=== PATIENT | male | born 1980 | race Caucasian/White ===

== ENCOUNTER 2018-06-02 15:22 | Emergency (ER) | payer BC ==
[~2018-06-02] VITALS: Ht 180.3 cm; Wt 81.6 kg
[2018-06-02] MEDS ORDERED: Norco 5mg/325mg tab ORAL ONE (15:45)
--- NOTE | 2018-06-02 16:31 | Emergency Room Report ---
History of Present Illness General Chief Complaint: Upper Extremity Injury Source: Patient Present Illness HPI 38-year-old male presents to the emergency department complaining of 10 out of 10 in severity localized pain to the right fifth knuckles status post punching a desk earlier today. Patient denies open wounds or bleeding he reports pain with attempts to make a fist or straightening his pinky up completely. Patient denies bruising he reports some mild swelling. Patient denies previous injury to the extremity. Denies numbness tingling or loss of sensation or gross motor movements of the extremities, incontinence of bowel or bladder. Denies CP, Palpitations, LOC, AMS, dizziness, Changes in Vision, weakness or a sudden severe headache. Allergies: Coded Allergies: No Known Allergies (Unverified , 06/02/18) Patient History Past Medical History: see triage record Past Surgical History: none Pertinent Family History: none Reviewed Nursing Documentation: PMH: Agreed; PSxH: Agreed Nursing Documentation-PMH Past Medical History: No Stated History Review of Systems All Other Systems: negative except mentioned in HPI Physical Exam Vital Signs Date Time Temp Pulse Resp B/P (MAP) Pulse Ox O2 Delivery O2 Flow Rate FiO2 06/02/18 15:29 97.9 81 18 160/99 97 Room Air 97.9 Sp02 EP Interpretation: reviewed, normal General Appearance: no apparent distress, alert, GCS 15, non-toxic Head: normocephalic, atraumatic Eyes: bilateral eye normal inspection, bilateral eye PERRL ENT: hearing grossly normal, normal voice Neck: full range of motion Respiratory: lungs clear, normal breath sounds, speaking full sentences Cardiovascular #1: regular rate, rhythm, normal capillary refill Musculoskeletal: back normal, gait/station normal, normal range of motion, tender - TP right 5th knuckle, swelling noted. Neurologic: alert, oriented x3, responsive, motor strength/tone normal, sensory intact, speech normal, grossly normal Psychiatric: judgement/insight normal Skin: normal color, no rash, warm/dry, well hydrated Medical Decision Making PA Attestation Dr. Ravi is my supervising Physician whom patient management has been discussed with. Diagnostic Impression: Primary Impression: Boxers fracture Qualified Codes: S62.339A - Displaced fracture of neck of unspecified metacarpal bone, initial encounter for closed fracture ER Course 38-year-old male presents to the emergency department complaining of 10 out of 10 in severity localized pain to the right fifth knuckles status post punching a desk earlier today. Patient denies open wounds or bleeding he reports pain with attempts to make a fist or straightening his pinky up completely. Patient denies bruising he reports some mild swelling. Patient denies previous injury to the extremity. Denies numbness tingling or loss of sensation or gross motor movements of the extremities, incontinence of bowel or bladder. Denies CP, Palpitations, LOC, AMS, dizziness, Changes in Vision, weakness or a sudden severe headache. Ddx considered but are not limited to Fracture, dislocation, contusion, Sprain/ Strain/Spasm just to name a few. Vital signs: are WNL, pt. is afebrile H&PE are most consistent with musculoskeletal injury will perform imaging to r/ o fractures/dislocations. ORDERS: - X-ray Right Hand 3 views - POSITIVE FOR 5th METACARPAL Fx, negative for dislocation, or significant soft tissue injury, per preliminary read in ED, and signed by EULALIA Chakraborty, my supervising physician has reviewed, and agrees with my interpretation. ED INTERVENTIONS: --Macomb PO - ulnar gutter Splint applied to the right hand by technical data analyst. Pt. remains neurovascularly intact. DISCHARGE: At this time pt. is stable for d/c to home. Will provide printed patient care instructions, and any necessary prescriptions. Care plan and follow up instructions have been discussed with the patient prior to discharge. Other X-Ray Diagnostic Results Other X-Ray Diagnostic Results : X-Ray ordered: Right Hand # of Views/Limited Vs Complete: 3 View Indication: Pain EP Interpretation: Yes EULALIA Xray: Interpretation reviewed, by supervising MD, and agrees with findings. Interpretation: no dislocation, no soft tissue swelling, other - POSITIVE FOR 5th METACARPAL Fx Impression: Other - abnormal Electronically Signed by: Altagracia Chakraborty PA-C Last Vital Signs Date Time Temp Pulse Resp B/P (MAP) Pulse Ox O2 Delivery O2 Flow Rate FiO2 06/02/18 15:52 97.9 06/02/18 15:29 81 18 160/99 97 Room Air Disposition: HOME, SELF-CARE Condition: Stable Scripts Ibuprofen* (MOTRIN*) 600 Mg Tablet 600 MG ORAL THREE TIMES A DAY, #30 TAB 0 Refills Prov: Altagracia Chakraborty 06/02/18 Hydrocodone Bit/Acetaminophen 5-325* (NORCO 5-325*) 1 Each Tablet 1 TAB ORAL Q6H, #15 TAB 0 Refills Prov: Altagracia Chakraborty 06/02/18 Referrals: NON PHYSICIAN (PCP) Patient Instructions: Boxer's Fracture Additional Instructions: Take medications as directed. Follow up with an COMPLEX CASE MANAGER in 3-5 days, even if your symptoms have resolved. If symptoms persist MRI may be required at the discretion of your PCP or Ortho Specialist. --Please review list of primary care clinics, if you do not already have a primary care provider who can give you an Orthopedic Referral. Return sooner to ED if new symptoms occur, or current symptoms become worse. Do not drink alcohol, drive, or operate heavy machinery while taking Macomb as this may cause drowsiness. - Please note that this Emergency Department Report was dictated using [employer] bariatric technology software, occasionally this can lead to erroneous entry secondary to interpretation by the dictation equipment. Altagracia Chakraborty Jun 02, 2018 16:31
--- NOTE | 2018-06-02 16:31 | Diagnostic Imaging Report ---
Indication: pain Right hand pain Findings: 3 views of the right hand were obtained. Acute nonintra-articular fracture of the distal part of the fifth metacarpal demonstrated with mild angulation. Soft tissue swelling noted. IMPRESSION: Acute fifth metacarpal fracture
[2018-06-02] MEDS ORDERED: NORCO 5-325 TA1 EACH ORAL (16:32)
[2018-06-02] MEDS ORDERED: IBUPROFEN600 MG ORAL (16:32)
[2018-06-02 17:02] VITALS: BP 150/89
[2018-06-02 17:04] VITALS: BP 150/89
== END 2018-06-02 17:06 | disposition home or self-care (01) ==
LOC: EMR 15:57
DX: S62.396A Other fracture of fifth metacarpal bone, right hand, initial encounter for closed fracture (principal); W22.8XXA Striking against or struck by other objects, initial encounter; Y92.9 Unspecified place or not applicable
CPT/HCPCS: 99284

== ENCOUNTER 2018-09-23 09:42 | Emergency (ER) | payer BC ==
[~2018-09-23] VITALS: Ht 175.3 cm; Wt 87.1 kg
[~2018-09-23 09:42] MED LIST: IBUPROFEN600 MG ORAL; NORCO 5-325 TA1 EACH ORAL
[2018-09-23 10:06] VITALS: BP 145/90
--- NOTE | 2018-09-23 10:29 | Emergency Room Report ---
History of Present Illness General Chief Complaint: Upper Respiratory Illness Source: Patient Present Illness HPI Patient presents with cough, fevers and chills. Also sore throat, but he feels this is related to coughing. Able to swallow without difficulty. Cough with some green phlegm. Has been taking OTC cough medicines without help. Temp to 102 last weekend and 100 last night. Chilled, no rigors. Chest pressure more than pain. Drained and somewhat poor appetite. No rashes. No ear pain. Aching when has fevers. Last took motrin last night. Denies cardiac risk factors. No calf pain or swelling. Nausea, no vomiting. No dysuria. Working 2 jobs. Allergies: Coded Allergies: No Known Allergies (Unverified , 06/02/18) Patient History Past Medical History: see triage record Social History: Denies: smoking - former Social History Narrative commercial decorator Reviewed Nursing Documentation: PMH: Agreed; PSxH: Agreed Nursing Documentation-PMH Hx Cardiac Problems: Yes - hyperlipidemia Review of Systems All Other Systems: negative except mentioned in HPI Physical Exam Vital Signs Date Time Temp Pulse Resp B/P (MAP) Pulse Ox O2 Delivery O2 Flow Rate FiO2 09/23/18 09:54 98.1 100 18 145/90 96 Room Air Sp02 EP Interpretation: reviewed, normal General Appearance: well appearing, no apparent distress, GCS 15 Head: normocephalic, atraumatic Eyes: bilateral eye normal inspection, bilateral eye PERRL ENT: hearing grossly normal, normal voice, moist mucus membranes, pharyngeal erythema - minimal Neck: full range of motion, supple Respiratory: no respiratory distress, crackles - L base with some popping sounds with inspiration, speaking full sentences Cardiovascular #1: tachycardia Cardiovascular #2: 2+ radial (R) Gastrointestinal: normal inspection Genitourinary: no CVA tenderness Musculoskeletal: no calf tenderness Neurologic: alert, oriented x3, normal gait, grossly normal Psychiatric: mood/affect normal Skin: no rash Medical Decision Making Diagnostic Impression: Primary Impression: Pneumonia Qualified Codes: J18.1 - Lobar pneumonia, unspecified organism ER Course Patient presents with fever and cough. DDX: bronchitis, PNA, bronchospasm, viral process amongst others. CXR indicated as well as breathing treatment. Not syndrome indicating influenza. Tylenol declined. CXR with LLL infiltrate. Levaquin given. Not toxic. Slightly tachycardic. O2 sat 98%. Discussed findings with patient and treatment plan. Told if not doing well to return. Patient stable for outpatient observation and treatment. Chest X-Ray Diagnostic Results Chest X-Ray Diagnostic Results : Chest X-Ray Ordered: Yes # of Views/Limited/Complete: 1 View Indication: Other EP Interpretation: Yes Interpretation: no effusion, no pneumothorax, other - LLL infiltrate Impression: Other Electronically Signed by: Electronically signed by Grzegorz Fernandez MD Last Vital Signs Date Time Temp Pulse Resp B/P (MAP) Pulse Ox O2 Delivery O2 Flow Rate FiO2 09/23/18 12:02 98.1 16 137/88 98 Room Air 21 09/23/18 10:46 103 Status: improved Disposition: HOME, SELF-CARE Condition: Improved Scripts Albuterol Sulfate* (ALBUTEROL SULFATE MDI*) 8.5 Gm Hfa.aer.ad 2 PUFF INH Q6H, #1 EA 0 Refills Prov: Grzegorz Fernandez MD 09/23/18 Levofloxacin* (LEVAQUIN*) 500 Mg Tablet 500 MG ORAL DAILY, #7 TAB Prov: Grzegorz Fernandez MD 09/23/18 Guaifenesin/Codeine Phos* (ROBITUSSIN AC*) 118 Ml Liquid 5 ML ORAL Q6H PRN for For Cough, #60 ML 0 Refills Prov: Grzegorz Fernandez MD 09/23/18 Referrals: NON PHYSICIAN (PCP) Grzegorz Fernandez MD Sep 23, 2018 10:29
[2018-09-23] MEDS ORDERED: Albuterol ud Inhalation HHN ONE (10:30)
[2018-09-23] MEDS ORDERED: Levofloxacin 500mg tab ORAL ONE (11:15)
--- NOTE | 2018-09-23 11:29 | Diagnostic Imaging Report ---
Indication: Dyspnea Comparison: None A single view chest radiograph was obtained. Findings: Lung volumes are low limiting evaluation. There is a suspected infiltrate at the left lung base. Heart size is normal. Bones are unremarkable. IMPRESSION: Suspected pneumonia left lung base
[2018-09-23] MEDS ORDERED: ALBUTEROL SULF8.5 GM INH (11:45)
[2018-09-23] MEDS ORDERED: LEVAQUIN500 MG ORAL (11:45)
[2018-09-23] MEDS ORDERED: GUAIFENESIN-CO118 M1 ORAL (11:45)
[2018-09-23 12:02] VITALS: BP 137/88
== END 2018-09-23 12:02 | disposition home or self-care (01) ==
LOC: EMR 10:20
DX: J18.8 Other pneumonia, unspecified organism (principal); R05 Cough; E78.5 Hyperlipidemia, unspecified; Z87.891 Personal history of nicotine dependence
CPT/HCPCS: 71045; 94640; 94664; 99284